=== PATIENT | female | born 1990 | race Caucasian/White ===

== ENCOUNTER 2018-01-10 21:03 | Emergency (ER) | payer SELFPAY ==
[2018-01-10 21:09] VITALS: BP 101/55; PULSE 88; TEMP 99.5; BMI 25.0
--- NOTE | 2018-01-10 21:10 | PDOC ---
History of Present Illness - General History Source: Patient Exam Limitations: No Limitations - History of Present Illness Initial Comments: 01/10/18 21:58 The patient is a 27 year old female who presents to the emergency department complaining of sore throat since 7pm. The patient reports episode of discomfort with her throat, but today her throat and neck really hurt, unlike anything she has experience which prompted her to visit the emergency department. The patient reports moderate pain in her throat and around her neck. Of note, the patient suspects she is . She reports associated symptom of subjective fever. The patient denies chest pain, shortness of breath, headache, and dizziness. Denies chills, nausea, vomiting, diarrhea, and constipation. Denies dysuria, frequency, urgency, and hematuria. PAST MEDICAL HISTORY: Crohn's disease PAST SURGICAL HISTORY: no significant history FAMILY HISTORY: no pertinent history SOCIAL HISTORY: Pt lives with family and is employed. Former smoker 2018 MEDICATIONS: reviewed ALLERGIES: As per nursing notes ROS General: (+)fevers. No chills, no weakness, no weight loss HEENT: (+)sore throat. (+)neck pain. No change in vision. Cardiovascular: No chest pain or shortness of breath Respiratory:No cough, or wheezing. Gastrointestinal: no nausea, vomiting, diarrhea or constipation, No rectal bleeding Genitourinary: No dysuria, hematuria, or frequency Musculoskeletal: No joint or muscle pain or swelling Neurologic: No headache, vertigo, dizziness or loss of consciousness Psychiatric: nor depression Skin: No rashes or easy bruising Endocrine: no increased thirst or abnormal weight change Allergic: no skin or latex allergy All other systems reviewed and normal PE GENERAL: The patient is awake, alert, and fully oriented, in no acute distress. HEAD: Normal with no signs of trauma. EYES: Pupils equal, round and reactive to light, extraocular movements intact, sclera anicteric, conjunctiva clear. THROAT: (+)Posterior oropharynx tonsils enlarged bilaterally. (+)Mild exudate right greater than left. No meningeal signs (+)Bilateral submandibular lymphadenopathy with tenderness. EXTREMITIES: Normal range of motion, no edema. NEUROLOGICAL: Normal speech, normal gait. PSYCH: Normal mood, normal affect. SKIN: Warm, Dry, normal turgor, no rashes or lesions noted. <Reuben Muñoz - Last Filed: 01/10/18 21:58> - General History Source: Patient Exam Limitations: No Limitations - History of Present Illness Initial Comments: A portion of this note was documented by scribe services under my direction. I have reviewed the details of the note, within reason, and agree with the documentation. The case summary and management plan written by me. Assessment and plan: This is a 27-year-old female comes in complaining of a sore throat. Patient had a very mild exudative pharyngitis but minimal lymphadenopathy and a low-grade fever. A rapid strep was sent which was negative. Patient reassured this most likely is viral and discharged home. Patient was also told that there is a false negative rate for the rapid strep and that if it was positive we would let her know. <Juan Jose Marks I - Last Filed: 01/10/18 23:23> - General Chief Complaint: Sore Throat Stated Complaint: SORE THROAT Time Seen by Provider: 01/10/18 21:06 Past History <Reuben Muñoz - Last Filed: 01/10/18 21:58> - Suicide/Smoking/Psychosocial Hx Smoking History: Former smoker Have you smoked in the past 12 months: Yes If you are a former smoker, when did you quit?: 1 WEEK AGO Information on smoking cessation initiated: Yes <Juan Jose Marks I - Last Filed: 01/10/18 23:23> - Past Medical History Allergies/Adverse Reactions: Allergies Allergy/AdvReac Type Severity Reaction Status Date / Time No Known Allergies Allergy Unverified 01/10/18 21:04 Home Medications: Ambulatory Orders Mercaptopurine [Purinethol -] 100 mg PO DAILY 01/10/18 *Physical Exam - Vital Signs Last Vital Signs Temp Pulse Resp BP Pulse Ox 99.5 F 88 16 101/55 98 01/10/18 21:05 01/10/18 21:05 01/10/18 21:05 01/10/18 21:05 01/10/18 21:05 <Reuben Muñoz - Last Filed: 01/10/18 21:58> - Vital Signs Last Vital Signs Temp Pulse Resp BP Pulse Ox 99.5 F 88 16 101/55 98 01/10/18 21:05 01/10/18 21:05 01/10/18 21:05 01/10/18 21:05 01/10/18 21:05 <Juan Jose Marks I - Last Filed: 01/10/18 23:23> ED Treatment Course - ADDITIONAL ORDERS Additional order review: 01/10/18 21:10 Group A Strep Rapid Antigen - Final Throat NEGATIVE FOR THE ANTIGEN OF BETA HEMOLYTIC STREP GROUP A <Reuben Muñoz - Last Filed: 01/10/18 21:58> *DC/Admit/Observation/Transfer - Attestations Scribe Attestion: Documentation prepared by Reuben Muñoz, acting as emergency medical service manager for Juan Jose Marks MD. <Reuben Muñoz - Last Filed: 01/10/18 21:58> - Discharge Dispostion Admit: No <Juan Jose Marks I - Last Filed: 01/10/18 23:23> Diagnosis at time of Disposition: Pharyngitis Qualifiers: Pharyngitis/tonsillitis etiology: unspecified etiology Qualified Code(s): J02.9 - Acute pharyngitis, unspecified - Discharge Dispostion Disposition: HOME Condition at time of disposition: Stable - Patient Instructions Printed Discharge Instructions: Viral Pharyngitis Additional Instructions: Tylenol or Motrin as needed for fevers and pain. Your strep test was negative. The test we did was a rapid strep there is a small percentage of false negatives so a culture will be done if the culture shows anything different we will notify you. Return to the emergency department immediately with ANY new, persistent or worsening symptoms. Continue any medications as previously prescribed by your physician. You should follow up with your primary doctor as soon as possible regarding today's emergency department visit. . Please make sure your doctor reviews the results of your emergency evaluation. Thank you for coming to the Emergency Department today for your care. It was a pleasure to see you today. Please note that your evaluation is INCOMPLETE until you follow-up with your doctor.
== END 2018-01-10 21:55 | disposition home or self-care (01) ==
LOC: FER 21:03
DX: J02.9 Acute pharyngitis, unspecified (principal); Z87.891 Personal history of nicotine dependence
CPT/HCPCS: 87070; 87430; 99281-25

== ENCOUNTER 2018-01-12 07:45 | Emergency (ER) | payer SELFPAY ==
[2018-01-12 08:02] VITALS: BP 105/55; PULSE 89; TEMP 98.8; BMI 24.4
[2018-01-12] MEDS ORDERED: DEXAMETHASONE SOD PHOSPHATE 10 MG/1 ML VIAL IM ONE (08:24)
[2018-01-12] MEDS ORDERED: DEXAMETHASONE SOD PHOSPHATE 4 MG/1 ML VIAL IM ONE (08:28)
--- NOTE | 2018-01-12 08:29 | PDOC ---
History of Present Illness - General Chief Complaint: Sore Throat Stated Complaint: SORE THROAT, FEVER () Time Seen by Provider: 01/12/18 08:20 History Source: Patient Exam Limitations: No Limitations (27 years old female with sore throat and fever for 3 days) Past History - Travel Traveled outside of the country in the last 30 days: No Close contact w/someone who was outside of country & ill: No - Past Medical History Allergies/Adverse Reactions: Allergies Allergy/AdvReac Type Severity Reaction Status Date / Time No Known Allergies Allergy Unverified 01/12/18 08:01 Home Medications: Ambulatory Orders Mercaptopurine [Purinethol -] 100 mg PO DAILY 01/10/18 Acetaminophen 325 mg PO ACDIN #30 tablet 01/12/18 COPD: No GI Disorders: Yes (CHRON'S) - Suicide/Smoking/Psychosocial Hx Smoking History: Current every day smoker Have you smoked in the past 12 months: Yes If you are a former smoker, when did you quit?: 9 days Information on smoking cessation initiated: No 'Breaking Loose' booklet given: 01/10/18 Substance Use Type: None Review of Systems - Review of Systems Is the patient limited Occitan proficient: No Constitutional: Yes: Chills, Fever HEENTM: Yes: Ear Pain, Throat Pain, Throat Swelling. No: Ear Discharge, Nose Pain, Nose Congestion, Difficulty Swallowing, Mouth Swelling Cardiac (ROS): No: Chest Pain ABD/GI: No: Abdominal Distended, Abd. Pain w/ defecation, Nausea, Poor Appetite : No: See HPI, Dysuria, Flank Pain, Hematuria, Incontinence *Physical Exam - Vital Signs Last Vital Signs Temp Pulse Resp BP Pulse Ox 98.8 F 89 18 105/55 99 01/12/18 07:58 01/12/18 07:58 01/12/18 07:58 01/12/18 07:58 01/12/18 07:58 - Physical Exam General Appearance: Yes: Nourished HEENT: positive: EOMI, TMs Normal, Pharyngeal Erythema, Tonsillar Exudate, Tonsillar Erythema (+ 2+ tonsill, no uvula deviation). 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 Patient denies any drooling voice hoarseness or cough, vag bleed/abd pain exam consistent with swollen tonsils with exudate r/o strep tylenol, dexa RS pending 01/12/18 08:35 01/12/18 10:01 RS neg, culture sent tylenol for pain, salt water gargle *DC/Admit/Observation/Transfer Diagnosis at time of Disposition: Sorethroat - Discharge Dispostion Disposition: HOME Condition at time of disposition: Stable Admit: No - Prescriptions Prescriptions: Acetaminophen 325 mg PO ACDIN #30 tablet - Referrals Referrals: Bello Francis [Primary Care Provider] - - Patient Instructions Printed Discharge Instructions: Sore Throat Additional Instructions: I discussed the physical exam findings, ancillary test results and final diagnoses with the patient. I answered all of the patient's questions. The patient was satisfied with the care received and felt comfortable with the discharge plan and treatment plan. The patient will call their primary care physician within 24 hours to arrange follow-up and will return to the Emergency Department with any new, persistant or worsening symptoms. - Post Discharge Activity
[2018-01-12] MEDS ORDERED: DEXAMETHASONE SOD PHOSPHATE 4 MG/1 ML VIAL ONE (08:34)
--- NOTE | 2018-01-14 07:46 | PDOC ---
Patient Follow-up (Call Back) - Post ED Follow - Up Condition at time of discharge: Stable Disposition at time of original discharge: HOME Reason for Call Back: Abnwl. Microbiology (Throat culture pending organism. Rapid strep negative. Pt not on abx.)
== END 2018-01-12 09:25 | disposition home or self-care (01) ==
LOC: JERFT 07:45
DX: O99.89 Other specified diseases and conditions complicating pregnancy, childbirth and the puerperium (principal); J02.9 Acute pharyngitis, unspecified; Z3A.01 Less than 8 weeks gestation of pregnancy
CPT/HCPCS: 87070; 87430; 99281-25